=== PATIENT | male | born 1980 | race Caucasian/White ===

== ENCOUNTER 2017-02-09 14:11 | Emergency (ER) | payer MEDICAID ==
[2017-02-09 14:17] VITALS: BP 120/78; PULSE 96; RESP 18; TEMP 98.2; O2SAT 96
--- NOTE | 2017-02-09 14:30 | EDPHY ---
H & P Time Seen by Provider: 02/09/17 14:22 HPI/ROS: CHIEF COMPLAINT: Rash x3 days HISTORY OF PRESENT ILLNESS: 36-year-old male arrives via private vehicle complaining of rash for the past 3 days. Says primary care provider yesterday and had a prescription for a cream called into pharmacy which is waiting for him and has an appoint with academic interventionist on Sunday (today is Sunday). He came to the ER for 2nd opinion prior to his dermatology appointment. The lesions are described as pruritic, nontender. He denies constitutional symptoms. He denies: Ocular involvement, nasopharyngeal involvement, genitalia involvement, nausea, vomiting, diarrhea, flu-like symptoms, myalgias, new medications. PRIMARY CARE PROVIDER:Dr. Jasiel Stewart REVIEW OF SYSTEMS: A ten point review of systems was performed and is negative with the exception of the items mentioned in the HPI PAST MEDICAL & SURGICAL HISTORY: schizoaffective disorder SOCIAL HISTORY:nonsmoker PHYSICAL EXAM (Prior to examination, patient consented to physical exam, hands were washed and my usual and customary physical exam procedures followed) 1) GENERAL: Well-developed, well-nourished, alert and oriented. Appears to be in no acute distress. Smiling, shakes my hand 2) HEAD: Normocephalic, atraumatic 3) HEENT: Pupils equal, round, reactive to light bilaterally. No injection Nasopharynx, oropharynx, clear, no lesions. No tonsillar enlargement or exudate Ears bilaterally with normal tympanic membranes. 4) NECK: Full range of motion, no meningeal signs. 5) LUNGS: Clear auscultation bilaterally, no wheezes, no rhonchi, no retractions. 6) HEART: Regular rate and rhythm, no murmur, no heave, no gallop. 7) ABDOMEN: No guarding, no rebound, no focal tenderness, 8) MUSCULOSKELETAL: Moving all extremities, no focal areas of tenderness, no obvious trauma. No peripheral edema or discoloration. 9) BACK: No CVA tenderness, no midline vertebral tenderness, no fluctuance, no step-off, no obvious trauma, no visual or palpable abnormality. 10) SKIN: On the patient's chest, not following a dermatomal distribution he has flat plaques, salmon colored, excoriated nontender. Nonvesicular. Non weeping. No palmar or plantar rashes. No genitalia lesion. 11) Psychiatric: Patient is oriented X 3, there is no agitation. DIFFERENTIAL DIAGNOSIS: in no particular include but limited to contact dermatitis, zoster, cellulitis Smoking Status: Never smoked Constitutional: Initial Vital Signs Temperature (C) 36.8 C 02/09/17 14:15 Heart Rate 96 02/09/17 14:15 Respiratory Rate 18 02/09/17 14:15 Blood Pressure 120/78 02/09/17 14:15 O2 Sat (%) 96 02/09/17 14:15 O2 Delivery Mode Room Air Allergies/Adverse Reactions: Benzodiazepines Allergy (Intermediate, Verified 12/19/12 10:15) Other-Enter Comments Penicillins Allergy (Intermediate, Verified 12/19/12 10:15) Abdominal Cramping haloperidol [From Haldol] Allergy (Verified 05/13/14 12:20) haloperidol lactate [From Haldol] Allergy (Verified 05/13/14 12:20) Home Medications: Medication Instructions Recorded Cholecalciferol Vit D3 [Vitamin D3 2,000 units PO DAILY@12 05/13/14 (OTC)] Divalproex [Depakote 250 MG (RX)] 250 mg PO BID 05/13/14 Multivitamins [Tab-A-Deandre] 1 tab PO DAILY@12 05/13/14 [place]-3 Fatty Acids [Fish Oil 1000 1,000 mg PO TID 05/13/14 mg (OTC)] Aripiprazole [Abilify] 15 mg PO DAILY 05/22/14 Ascorbic Acid [Vitamin C 500 mg 1,000 mg PO BID 05/22/14 (OTC)] Herbals/Supplements -Info Only 1 ea PO DAILY 05/22/14 diphenhydrAMINE [Benadryl] 25 mg PO TID PRN 05/22/14 MDM/Departure - MDM ED Course/Re-evaluation: Doubt infectious etiology. Doubt zoster. Doubt Infante-Aamir. I do not think that emergent dermatologic consultation or hospitalization is indicated. Today is Sunday. He has an appointment with his academic interventionist on Sunday, recommend he keep this appointment. In the meantime given usual and customary dermatologic precautions and instructions. He feels comfortable being discharged. - Depart Disposition: Home, Routine, Self-Care Clinical Impression: Rash Condition: Good Instructions: Acute Rash (ED) Additional Instructions: Keep your dermatology appointment on Sunday. Return to the ER if you develop new or worsening symptoms, if you develop mouth lesions, if you develop genital lesions or any other symptoms that concern you. Referrals: Keep, your dermatology appointment on Sunday [Other] - As per Instructions
== END 2017-02-09 14:48 | disposition home or self-care (01) ==
DX: R21 Rash and other nonspecific skin eruption (principal)

== ENCOUNTER 2018-08-30 21:04 | Emergency (ER) | payer MEDICAID ==
[2018-08-30 21:13] VITALS: BP 139/88
--- NOTE | 2018-08-30 21:49 | EDPHY ---
H & P Stated Complaint: Feeling Dissoriented denies any head injury Time Seen by Provider: 08/30/18 21:48 - Personal History Current Tetanus Diphtheria and Acellular Pertussis (TDAP): Unsure Tetanus Vaccine Date: unsure - Medical/Surgical History Hx Asthma: No Hx Chronic Respiratory Disease: No Hx Diabetes: No Hx Cardiac Disease: No Hx Renal Disease: No Hx Cirrhosis: No Hx Alcoholism: No Hx HIV/AIDS: No Hx Splenectomy or Spleen Trauma: No Other PMH: PMH: SCHIZOAFFECTIVE. PSH: DENIES - Social History Smoking Status: Never smoked Constitutional: Initial Vital Signs Temperature (C) 36.4 C 08/30/18 21:10 Heart Rate 82 08/30/18 21:10 Respiratory Rate 16 08/30/18 21:10 Blood Pressure 139/88 H 08/30/18 21:10 O2 Sat (%) 96 08/30/18 21:10 O2 Delivery Mode Room Air Allergies/Adverse Reactions: Benzodiazepines Allergy (Intermediate, Verified 12/19/12 10:15) Other-Enter Comments Penicillins Allergy (Intermediate, Verified 12/19/12 10:15) Abdominal Cramping haloperidol [From Haldol] Allergy (Verified 05/13/14 12:20) haloperidol lactate [From Haldol] Allergy (Verified 05/13/14 12:20) Home Medications: Medication Instructions Recorded Cholecalciferol Vit D3 [Vitamin D3 2,000 units PO DAILY@12 05/13/14 (OTC)] Multivitamins [Tab-A-Deandre] 1 tab PO DAILY@12 05/13/14 [place]-3 Fatty Acids [Fish Oil 1000 1,000 mg PO TID 05/13/14 mg (OTC)] Aripiprazole [Abilify] 15 mg PO DAILY 05/22/14 Ascorbic Acid [Vitamin C 500 mg 1,000 mg PO BID 05/22/14 (OTC)] Herbals/Supplements -Info Only 1 ea PO DAILY 05/22/14 diphenhydrAMINE [Benadryl] 25 mg PO TID PRN 05/22/14 Medical Decision Making ED Course/Re-evaluation: CHIEF COMPLAINT: HISTORY OF PRESENT ILLNESS: The patient is a 38 y/o male complaining of feeling disoriented today. The patient went to get a hair cut and after returning home he was confused. He denies any injury or taking the wrong dose including the wrong dose of his Abilify. No fever, headache, body aches, lightheadedness, chest pain, heart palpitations, shortness of breath, cough, abdominal pain, urinary or bowel complaints, numbness, paresthesias. REVIEW OF SYSTEMS: A comprehensive 10 system review of systems is otherwise negative aside from elements mentioned in the history of present illness and medical decision making. PHYSICAL EXAM: HR, BP, O2 Sat, RR. Temp noted General Appearance: Alert, well hydrated, appropriate, and non-toxic appearing. Head: Atraumatic without scalp tenderness or obvious injury Eyes: Pupils equal, round, reactive to light and accommodation, EOMI, no trauma , no injection. Ears: Clear bilaterally, no perforation, normal landmarks Nose: Atraumatic, no rhinorrhea, clear. Throat: There is no erythema or exudates, no lesions, normal tonsils, mucus membranes moist. Neck: Supple, 2+ carotid upstroke, nontender, no lymphadenopathy. Respiratory: No retractions, no distress, no wheezes, and no accessory muscle use. Lungs are clear to auscultation bilaterally. Cardiovascular: Regular rate and rhythm, no murmurs, rubs, or gallops. Bilateral carotid, radial, dorsalis pedis, and posterior tibial pulses intact. Good capillary refill all extremities. Gastrointestinal: Abdomen is soft, nontender, non-distended, no masses, no rebound, no guarding, no peritoneal signs. Musculoskeletal: Normal active ROM of all extremities, atraumatic. Neurological: Alert, appropriate, and interactive. The patient has normal DTRs and non-focal cranial nerves, motor, sensory, and cerebellar exam. Skin: No rashes, good turgor, no nodules on palpation. Past medical history: Schizoaffective disorder Past surgical history: Denies Family history: Denies Social history: Lives in [place], single, not employed DIAGNOSTICS/PROCEDURES/CRITICAL CARE TIME: Not indicated. DIFFERENTIAL DIAGNOSIS: The differential diagnosis for the patient's altered mental status included but was not limited to medicine reaction, hypoglycemia, infectious process, electrolyte abnormality, head injury, neurologic process, anemia, cardiac process, and intoxicants. MEDICAL DECISION MAKING: The patient is a 38 y/o male presenting with feeling disoriented today. The patient went to get a hair cut and after returning home he was confused. He denies any injury or taking the wrong dose including the wrong dose of his Abilify. However, I suspect his symptoms are due to an Abilify reaction. He has a normal physical exam. Labs ordered. 2204: Patient's labs are unremarkable. 2206: Reassessed patient and discussed imaging findings. Return precautions provided; patient is comfortable with this plan. - Data Points Laboratory Results: 08/30/18 22:03 POC Hgb 16.3 gm/dL gm/dL (13.7-17.5) POC Hct 48 % % (40-51) POC Sodium 140 mEq/L mEq/L (135-145) POC Potassium 4.0 mEq/L mEq/L (3.3-5.0) POC Chloride 103 mEq/L mEq/L (97-110) POC Total CO2 23 mEq/L mEq/L (22-31) POC BUN 10 mg/dL mg/dL (7-23) POC Creatinine 0.9 mg/dL mg/dL (0.7-1.3) POC Glucose 88 mg/dL mg/dL (70-100) Point of Care Test Results: Chemistry 08/30/18 22:03 POC Sodium 140 mEq/L mEq/L (135-145) POC Potassium 4.0 mEq/L mEq/L (3.3-5.0) POC Chloride 103 mEq/L mEq/L (97-110) POC Total CO2 23 mEq/L mEq/L (22-31) POC BUN 10 mg/dL mg/dL (7-23) POC Creatinine 0.9 mg/dL mg/dL (0.7-1.3) POC Glucose 88 mg/dL mg/dL (70-100) ISTAT H&H 08/30/18 22:03 POC Hgb 16.3 gm/dL gm/dL (13.7-17.5) POC Hct 48 % % (40-51) Departure - Departure Disposition: Home, Routine, Self-Care Clinical Impression: Disoriented, ambilify reaction Medication reaction Qualifiers: Encounter type: initial encounter Qualified Code(s): T50.905A - Adverse effect of unspecified drugs, medicaments and biological substances, initial encounter Condition: Good Instructions: Altered Mental Status (ED) Additional Instructions: 1. Follow-up with your primary doctor within 72 hours. 2. Return to the Emergency Department for severe headache, vomiting, vision changes, confusion, fever or other concerns. Referrals: [facility],. [Clinic] - As per Instructions Report Scribed for: Bubba Alex Report Scribed by: Bianca Mesa Date of Report: 08/30/18 Time of Report: 21:49
== END 2018-08-30 22:26 | disposition home or self-care (01) ==
DX: R41.82 Altered mental status, unspecified (principal); T50.905A Adverse effect of unspecified drugs, medicaments and biological substances, initial encounter; F20.89 Other schizophrenia; Z79.899 Other long term (current) drug therapy
CPT/HCPCS: 82435-PO; 82565-PO; 82947-PO; 84132-PO; 84295-PO; 84484-ER; 84520-PO; 85014-ER